=== PATIENT | male | born 1960 | race Caucasian/White ===

== ENCOUNTER 2017-02-10 18:29 | Inpatient (IN) | payer MEDICAID ==
[~2017-02-10] VITALS: Ht 172.7 cm; Wt 84.1 kg
[2017-02-10] MEDS ORDERED: aspirin 81mg tab.chew PO ONE (18:50)
[2017-02-10] MEDS ORDERED: ipratropium/albuterol 3ml nebule NEB ONE (18:50)
[2017-02-10] MEDS ORDERED: methylPREDNISolone sod succ 125mg/2ml vial IV ONE (18:50)
[2017-02-10 19:22] LABS: BASOPHILS # (AUTO) 0.1 X10'3 (0-0.2); EOSINOPHILS # (AUTO) 0.8 X10'3 (0-0.9); EOSINOPHILS % (AUTO) 5.6 % (0-6); HEMATOCRIT 39.5 % (42.0-52.0); HEMOGLOBIN 13.7 g/dl (14.0-17.9); LYMPHOCYTES % (AUTO) 22.4 % (21-51); MEAN CORPUSCULAR HEMOGLOBIN 31.7 PG (27.0-31.0); MEAN CORPUSCULAR HGB CONC 34.6 % (33.0-36.5); MEAN CORPUSCULAR VOLUME 91.4 FL (78-98); MEAN PLATELET VOLUME 6.8 FL (7.4-10.4); MONOCYTES # (AUTO) 0.9 X10'3 (0-0.9); MONOCYTES % (AUTO) 6.8 % (2-12); NEUTROPHILS # (AUTO) 8.6 X10'3 (1.8-7.7); NEUTROPHILS % (AUTO) 64.2 % (42-75); PLATELET COUNT 442 X10'3 (140-440); RED BLOOD COUNT 4.32 X10'6 (4.70-6.10); RED CELL DISTRIBUTION WIDTH 13.9 % (11.5-14.5); WHITE BLOOD COUNT 13.5 X10'3 (4.5-11.0)
[2017-02-10 19:31] LABS: PARTIAL THROMBOPLASTIN TIME 29 SECONDS (22-32)
[2017-02-10 19:45] LABS: BILIRUBIN,TOTAL 0.2 MG/DL (0.1-1.0); MAGNESIUM 1.8 MG/DL (1.5-2.4)
[2017-02-10 20:06] LABS: ALANINE AMINOTRANSFERASE 47 U/L (12-78); ALBUMIN 2.8 G/DL (3.4-5.0); ALBUMIN/GLOBULIN RATIO 0.8 (1.1-1.5); ALKALINE PHOSPHATASE 148 IU/L (46-116); ANION GAP 18 (8-16); ASPARTATE AMINO TRANSFERASE 29 U/L (10-37); BLOOD UREA NITROGEN 26 MG/DL (7-18); BUN/CREATININE RATIO 23.4 (5.4-32.0); CALCIUM 8.6 MG/DL (8.5-10.1); CHLORIDE 100 MMOL/L (99-107); CREATININE 1.11 MG/DL (0.60-1.10); GLUCOSE 346 MG/DL (70-104); POTASSIUM 3.9 MMOL/L (3.5-5.1); SODIUM 147 MMOL/L (135-145); TOTAL CARBON DIOXIDE 28.6 MMOL/L (24-32); TOTAL PROTEIN 6.2 G/DL (6.4-8.2); eGFR 68 ML/MIN
[2017-02-10] MEDS ORDERED: LORazepam 2 mg/ml vial IV ONE (20:35)
[2017-02-10] MEDS ORDERED: temazepam 15mg capsule PO PRN (21:00)
[2017-02-10] MEDS ORDERED: normal saline 1000ml 1,000 ML IVB ONE (21:39)
[2017-02-10] MEDS ORDERED: morphine 5 MG/ML injection IV ONE (22:10)
[2017-02-10] MEDS ORDERED: HYDROcodone/acetaminophen 10/325mg tab PO PRN (22:15)
[2017-02-10] MEDS ORDERED: glucagon, human recombinant 1mg kit SUBCUT PRN (22:15)
[2017-02-10] MEDS ORDERED: dextrose 50%-water 50ml dispensing syringe IV PRN ×2 (22:15)
[2017-02-10] MEDS ORDERED: mag hydrox/Alum hydrox/simeth 30ml oral suspension PO PRN (22:15)
[2017-02-10] MEDS ORDERED: metoclopramide 5 mg/ml inj IV PRN (22:15)
[2017-02-10] MEDS ORDERED: aspirin 81mg tab.chew PO SCH (22:15)
[2017-02-10] MEDS ORDERED: nitroGLYCERIN 0.4mg SUBLingual tab SL PRN ×2 (22:15→22:25)
[2017-02-10] MEDS ORDERED: HYDROmorphone 1 mg/ml syringe IV PRN ×2 (22:15)
[2017-02-10] MEDS ORDERED: diphenhydrAMINE 25mg capsule PO PRN (22:15)
[2017-02-10] MEDS ORDERED: acetaminophen 325mg tablet PO PRN ×2 (22:15)
[2017-02-10] MEDS ORDERED: MESSAGE TO PHARMACY PO ONE (22:15)
[2017-02-10] MEDS ORDERED: bisacodyl 10mg suppository rectal RC PRN (22:15)
[2017-02-10] MEDS ORDERED: ondansetron/PF 4mg/2ml inj IV PRN (22:15)
[2017-02-10] MEDS ORDERED: HYDROcodone/acetaminophen 5mg/325mg tablet PO PRN (22:15)
[2017-02-10] MEDS ORDERED: magnesium hydroxide 30ml (MOM) UD suspension PO PRN (22:15)
[2017-02-10] MEDS ORDERED: dextrose ORAL solution 15 GM/59 ML bottle PO PRN ×2 (22:15)
[2017-02-10] MEDS ORDERED: diphenhydrAMINE 50 mg/ml inj IV PRN (22:15)
[2017-02-10] MEDS ORDERED: morphine sulfate 8 MG/ML SYRINGE IV PRN ×2 (22:15)
[2017-02-10] MEDS ORDERED: metoprolol tartrate 1mg/ml inj IV PRN (22:25)
[2017-02-10] MEDS ORDERED: aminophylline 250mg/10ml inj. IV PRN (22:25)
[2017-02-10] MEDS ORDERED: regadenoson 0.4mg/5ml syringe IV ONE (22:25)
[2017-02-10 22:40] LABS: HEMOGLOBIN A1C 7.7 % (4.5-6.2); LIPASE 177 U/L (73-393)
[2017-02-10] MEDS: normal saline 1000ml 1,000 ML IV SCH (22:57)
[2017-02-10] MEDS ORDERED: AMLO2.5T2 PO (23:52)
[2017-02-10] MEDS ORDERED: ATOR20TA PO (23:52)
[2017-02-10] MEDS ORDERED: LISI1TAB11 PO (23:52)
[2017-02-10] MEDS ORDERED: THI100T PO (23:52)
[2017-02-10] MEDS ORDERED: ASPI-1265 PO (23:52)
[2017-02-10] MEDS ORDERED: METH500T6 PO (23:52)
[2017-02-11] VITALS (15 sets, daily range): BP systolic 119–172; BP diastolic 81–110
[2017-02-11 07:10] LABS: BASOPHILS % (AUTO) 0.1 % (0-1); EOSINOPHILS % (AUTO) 0 % (0-6); HEMOGLOBIN 14.9 g/dl (14.0-17.9); LYMPHOCYTES # (AUTO) 1.4 X10'3 (1.1-4.8); LYMPHOCYTES % (AUTO) 6.8 % (21-51); MEAN CORPUSCULAR HEMOGLOBIN 30.9 PG (27.0-31.0); MEAN CORPUSCULAR HGB CONC 33.8 % (33.0-36.5); MEAN CORPUSCULAR VOLUME 91.4 FL (78-98); MONOCYTES # (AUTO) 0.2 X10'3 (0-0.9); MONOCYTES % (AUTO) 0.7 % (2-12); NEUTROPHILS # (AUTO) 19.7 X10'3 (1.8-7.7); NEUTROPHILS % (AUTO) 92.4 % (42-75); PLATELET COUNT 461 X10'3 (140-440); RED BLOOD COUNT 4.81 X10'6 (4.70-6.10); RED CELL DISTRIBUTION WIDTH 13.8 % (11.5-14.5); WHITE BLOOD COUNT 21.4 X10'3 (4.5-11.0)
[2017-02-11 07:29] LABS: ALANINE AMINOTRANSFERASE 54 U/L (12-78); ALBUMIN 3.1 G/DL (3.4-5.0); ALBUMIN/GLOBULIN RATIO 0.8 (1.1-1.5); ALKALINE PHOSPHATASE 116 IU/L (46-116); ANION GAP 11 (8-16); ASPARTATE AMINO TRANSFERASE 34 U/L (10-37); BILIRUBIN,TOTAL 0.3 MG/DL (0.1-1.0); BLOOD UREA NITROGEN 20 MG/DL (7-18); BUN/CREATININE RATIO 19.4 (5.4-32.0); CALCIUM 8.4 MG/DL (8.5-10.1); CHLORIDE 104 MMOL/L (99-107); CREATININE 1.03 MG/DL (0.60-1.10); GLUCOSE 301 MG/DL (70-104); POTASSIUM 4.2 MMOL/L (3.5-5.1); SODIUM 139 MMOL/L (135-145); TOTAL CARBON DIOXIDE 24.2 MMOL/L (24-32); TOTAL PROTEIN 6.8 G/DL (6.4-8.2); eGFR 74 ML/MIN
[2017-02-11] MEDS: pantoprazole 40mg Tablet.DR PO SCH (07:51)
[2017-02-11] MEDS: HYDROchlorothiazide 25mg tablet PO SCH (07:51)
[2017-02-11] MEDS: metoprolol tartrate 25mg tablet PO SCH ×2 (07:51→20:15)
[2017-02-11] MEDS: docusate sod 100mg capsule PO SCH ×2 (07:51→20:15)
[2017-02-11] MEDS: lisinopril 20mg tablet PO SCH (07:51)
[2017-02-11] MEDS: aspirin 81mg tab.chew PO SCH (07:52)
[2017-02-11] MEDS: enoxaparin 100mg/ml syringe SQ SCH ×2 (07:56→20:16)
[2017-02-11] MEDS ORDERED: cyclobenzaprine 10mg tablet PO PRN (08:00)
[2017-02-11] MEDS: thiamine 100mg tablet PO SCH (08:00)
[2017-02-11] MEDS ORDERED: atorvastatin 10mg tablet PO SCH (08:00)
[2017-02-11] MEDS ORDERED: lisinopril 5mg tablet PO SCH (08:00)
[2017-02-11] MEDS: normal saline 1000ml 1,000 ML IV SCH ×2 (08:13→18:13)
[2017-02-11] MEDS ORDERED: regadenoson 0.4mg/5ml syringe IV ONE (09:29)
[2017-02-11] MEDS ORDERED: aminophylline inj. 10 ML IV ONE (09:29)
[2017-02-11 10:50] LABS: BASOPHILS # (AUTO) 0.1 X10'3 (0-0.2); BASOPHILS % (AUTO) 0.5 % (0-1); EOSINOPHILS % (AUTO) 0 % (0-6); HEMATOCRIT 43.8 % (42.0-52.0); HEMOGLOBIN 14.8 g/dl (14.0-17.9); LYMPHOCYTES # (AUTO) 1.8 X10'3 (1.1-4.8); LYMPHOCYTES % (AUTO) 7.5 % (21-51); MEAN CORPUSCULAR HGB CONC 33.7 % (33.0-36.5); MEAN CORPUSCULAR VOLUME 92.1 FL (78-98); MEAN PLATELET VOLUME 6.8 FL (7.4-10.4); MONOCYTES # (AUTO) 0.4 X10'3 (0-0.9); MONOCYTES % (AUTO) 1.7 % (2-12); NEUTROPHILS # (AUTO) 22.3 X10'3 (1.8-7.7); NEUTROPHILS % (AUTO) 90.3 % (42-75); PLATELET COUNT 476 X10'3 (140-440); RED BLOOD COUNT 4.76 X10'6 (4.70-6.10); RED CELL DISTRIBUTION WIDTH 13.9 % (11.5-14.5); WHITE BLOOD COUNT 24.7 X10'3 (4.5-11.0)
[2017-02-11 11:26] LABS: PLATELET ESTIMATE INCREASED; TOTAL CELLS COUNTED 100
[2017-02-11] MEDS: insulin Lispro (HumaLOG) vial - multi-dose SQ SCH ×2 (14:00→18:58)
[2017-02-11] MEDS: cefTRIAXone 1g/NS 100ml IVPB 100 ML IV SCH (15:50)
[2017-02-11] MEDS ORDERED: atorvastatin 20mg tablet PO SCH (21:00)
[2017-02-11] MEDS ORDERED: Insulin Detemir pen SQ SCH (21:00)
[2017-02-12] VITALS: BP 153/95
[2017-02-12] MEDS: normal saline 1000ml 1,000 ML IV SCH ×2 (04:13→16:09)
[2017-02-12 05:55] LABS: BASOPHILS # (AUTO) 0.1 X10'3 (0-0.2); BASOPHILS % (AUTO) 0.3 % (0-1); EOSINOPHILS # (AUTO) 0.5 X10'3 (0-0.9); EOSINOPHILS % (AUTO) 2.5 % (0-6); HEMATOCRIT 40.6 % (42.0-52.0); HEMOGLOBIN 13.7 g/dl (14.0-17.9); LYMPHOCYTES # (AUTO) 4.5 X10'3 (1.1-4.8); LYMPHOCYTES % (AUTO) 23.6 % (21-51); MEAN CORPUSCULAR HEMOGLOBIN 31.1 PG (27.0-31.0); MEAN CORPUSCULAR HGB CONC 33.8 % (33.0-36.5); MEAN CORPUSCULAR VOLUME 92.1 FL (78-98); MEAN PLATELET VOLUME 7.2 FL (7.4-10.4); MONOCYTES # (AUTO) 1.1 X10'3 (0-0.9); NEUTROPHILS # (AUTO) 12.9 X10'3 (1.8-7.7); NEUTROPHILS % (AUTO) 67.6 % (42-75); PLATELET COUNT 418 X10'3 (140-440); RED BLOOD COUNT 4.41 X10'6 (4.70-6.10); RED CELL DISTRIBUTION WIDTH 14.1 % (11.5-14.5)
[2017-02-12 06:39] LABS: ALANINE AMINOTRANSFERASE 45 U/L (12-78); ALBUMIN 2.8 G/DL (3.4-5.0); ALBUMIN/GLOBULIN RATIO 0.9 (1.1-1.5); ALKALINE PHOSPHATASE 80 IU/L (46-116); ANION GAP 9 (8-16); ASPARTATE AMINO TRANSFERASE 27 U/L (10-37); BILIRUBIN,TOTAL 0.2 MG/DL (0.1-1.0); BLOOD UREA NITROGEN 28 MG/DL (7-18); BUN/CREATININE RATIO 28.6 (5.4-32.0); CALCIUM 8.4 MG/DL (8.5-10.1); CHLORIDE 106 MMOL/L (99-107); CREATININE 0.98 MG/DL (0.60-1.10); GLUCOSE 174 MG/DL (70-104); POTASSIUM 3.9 MMOL/L (3.5-5.1); SODIUM 141 MMOL/L (135-145); TOTAL CARBON DIOXIDE 26.3 MMOL/L (24-32); eGFR 79 ML/MIN
[2017-02-12 07:13] VITALS: BP 133/92
[2017-02-12] MEDS: thiamine 100mg tablet PO SCH (07:53)
[2017-02-12] MEDS: cefTRIAXone 1g/NS 100ml IVPB 100 ML IV SCH (07:53)
[2017-02-12] MEDS: metoprolol tartrate 25mg tablet PO SCH (07:53)
[2017-02-12] MEDS: pantoprazole 40mg Tablet.DR PO SCH (07:53)
[2017-02-12] MEDS: aspirin 81mg tab.chew PO SCH (07:54)
[2017-02-12] MEDS: docusate sod 100mg capsule PO SCH (07:54)
[2017-02-12] MEDS: HYDROchlorothiazide 25mg tablet PO SCH (07:54)
[2017-02-12] MEDS: lisinopril 20mg tablet PO SCH (07:54)
[2017-02-12] MEDS: enoxaparin 100mg/ml syringe SQ SCH (07:55)
[2017-02-12] MEDS: insulin Lispro (HumaLOG) vial - multi-dose SQ SCH ×2 (08:56→13:22)
[2017-02-12 12:00] VITALS: BP 133/101
== END 2017-02-12 17:40 | disposition home or self-care (01) | DRG 720 ==
LOC: ER 18:30 → ED HOLD 22:13 → MED 3N 02-11 00:19
PROVIDERS: ADMIT Family Medicine; ATTEND Internal Medicine
PROC: 4A02XM4 Measurement of Cardiac Total Activity, External Approach (ICD-10-PCS; principal; 2017-02-11)
PROC: 3E033HZ Introduction of Radioactive Substance into Peripheral Vein, Percutaneous Approach (ICD-10-PCS; 2017-02-11)
DX: A41.9 Sepsis, unspecified organism (principal); E11.65 Type 2 diabetes mellitus with hyperglycemia; I10 Essential (primary) hypertension; R07.9 Chest pain, unspecified; E78.5 Hyperlipidemia, unspecified; E86.0 Dehydration; F19.10 Other psychoactive substance abuse, uncomplicated; F17.210 Nicotine dependence, cigarettes, uncomplicated; Z59.0 Homelessness; Z79.82 Long term (current) use of aspirin; Z79.899 Other long term (current) drug therapy; Z86.73 Personal history of transient ischemic attack (TIA), and cerebral infarction without residual deficits; Z71.51 Drug abuse counseling and surveillance of drug abuser
CPT/HCPCS: 36415; 71010; 78452; 80053; 82948; 83036; 83690; 83735; 83880; 84145; 84484; 85025; 85610; 85730; 87040; 87070; 93005; 93017; 94640; 94760; A6258; A9500; J0280; J0696; J1650; J2060; J2785; J2930; J7030

== ENCOUNTER 2017-02-23 13:28 | Emergency (ER) | payer MEDICAID ==
[~2017-02-23] VITALS: Ht 172.7 cm; Wt 90.0 kg
[~2017-02-23 13:28] MED LIST: AMLO2.5T2 PO; ASPI-1265 PO; ATOR20TA PO; LISI1TAB11 PO; METH500T6 PO; THI100T PO
[2017-02-23 15:52] VITALS: BP 139/91
== END 2017-02-23 15:54 | disposition home or self-care (01) ==
LOC: ER 13:29
DX: R42 Dizziness and giddiness (principal); F15.10 Other stimulant abuse, uncomplicated; Z86.73 Personal history of transient ischemic attack (TIA), and cerebral infarction without residual deficits; Z59.0 Homelessness; Z79.82 Long term (current) use of aspirin; Z79.899 Other long term (current) drug therapy
CPT/HCPCS: 82948; 93005; 99283